=== PATIENT | female | born 1950 | race Caucasian/White ===

== ENCOUNTER → 2017-03-15 | Outpatient (CLI) | payer MEDICARE ==
--- NOTE | 2017-03-15 12:53 | RADIOLOGY REPORT PS360 ---
US RUQ-(ABD LTD)1ORGAN/QUAD/FU HISTORY: ELEVATED LIVER ENZYMES ORDERING PHYSICIAN: CARL DE SOUZA APRN PATIENT AGE: 66 years COMPARISON: None FINDINGS: PANCREAS:Partially obscured by overlying bowel gas. LIVER:No focal liver lesions demonstrated. Homogeneous echogenicity. No intrahepatic biliary ductal dilatation evident. There is appropriate direction of blood flow within the portal vein. There is mild hepatic steatosis RIGHT KIDNEY:Unremarkable. Normal size and echogenicity. No hydronephrosis GALLBLADDER:Status post cholecystectomy. No ductal dilatation.. IMPRESSION: Fatty liver, prior cholecystectomy otherwise negative right upper quadrant ultrasound
== END ==
LOC: RAD 08:04
DX: R94.5 Abnormal results of liver function studies (principal)